=== PATIENT | female | born 1955 | race Hispanic/Latino ===

== ENCOUNTER 2017-03-29 17:23 | Emergency (ER) | payer MEDICAID ==
[2017-03-29] MEDS ORDERED: Sodium Chloride 0.9% 1,000 ML IV ONE (18:24)
[2017-03-29] MEDS ORDERED: Sodium Chloride 0.9% 1,000 ML ONE (18:35)
[2017-03-29 18:42] LABS: BASO % 0.2 % (0.0-2.0); CHLORIDE 96 mmol/L (98-107); HEMATOCRIT 40.8 % (34.0-47.0); LYMPH # 1.6 K/uL (1.0-4.3); LYMPH % 8.9 % (20.0-40.0); MEAN CELL VOLUME 85.9 fL (81.0-99.0); MEAN CORPUSCULAR HEMOGLOBIN 27.8 pg (27.0-31.0); MEAN CORPUSCULAR HGB CONC 32.4 g/dL (33.0-37.0); MEAN PLATELET VOLUME 10.1 fL (7.2-11.7); MONO # 0.7 K/uL (0.0-0.8); MONO % 4.2 % (0.0-10.0); PLATELET COUNT 281 K/uL (130-400); RED CELL DISTRIBUTION WIDTH 14.2 % (11.5-14.5); WHITE BLOOD COUNT 17.5 K/uL (4.8-10.8)
[2017-03-29 18:43] LABS: POTASSIUM 2.9 mmol/L (3.6-5.2); SODIUM 139 mmol/L (132-148)
[2017-03-29 18:46] LABS: ALB/GLOB RATIO 1.2 (1.0-2.1); ALKALINE PHOSPHATASE 72 U/L (38-126); ALT/SGPT 12 U/L (9-52); AST/SGOT 27 U/L (14-36); BILIRUBIN,TOTAL 1.3 mg/dL (0.2-1.3); BLOOD UREA NITROGEN 17 mg/dL (7-17); CALCIUM 10.1 mg/dl (8.6-10.4); CARBON DIOXIDE 25 mmol/L (22-30); GFR AFRICAN-AMERICAN > 60; GLUCOSE,RANDOM 87 mg/dL (65-105); TOTAL PROTEIN 8.9 g/dL (6.3-8.3)
[2017-03-29] MEDS ORDERED: Potassium Chloride 20 mEq ER Tab PO STA (19:06)
[2017-03-29] MEDS ORDERED: Potassium Chloride 20 mEq ER Tab PO ONE ×2 (19:32→19:46)
[2017-03-29] MEDS ORDERED: Lactated Ringer's 1,000 ML IVB STA (21:01)
[2017-03-29] MEDS ORDERED: Lactated Ringer's 1,000 ML ONE (21:13)
[2017-03-29 22:32] VITALS: BP 162/73; PULSE 81; RESP 18; TEMP 98.2; O2SAT 99
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
[2017-03-29 23:18] LABS: LARGE PLATELETS PRESENT; NEUTROPHIL 84 % (50-75); SMUDGE CELLS PRESENT; TOTAL CELLS COUNTED 100
== END 2017-03-29 23:50 | disposition home or self-care (01) ==
LOC: C.ER 17:23
DX: R11.2 Nausea with vomiting, unspecified (principal); R19.7 Diarrhea, unspecified
CPT/HCPCS: 80053; 83690; 85025; 96361; 96374; 96375; 99284; J2405; J7040; J7120

== ENCOUNTER 2017-05-06 03:14 | Emergency (ER) | payer MEDICAID ==
[2017-05-06 03:33] VITALS: RESP 20; TEMP 98
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
[2017-05-06] MEDS ORDERED: Tetanus/Diphtheria Toxoids 0.5 ml Syringe IM ONE (04:16)
[2017-05-06 04:40] VITALS: BP 120/76; PULSE 82; O2SAT 98
== END 2017-05-06 04:39 | disposition home or self-care (01) ==
LOC: C.ER 03:14
DX: S01.112A Laceration without foreign body of left eyelid and periocular area, initial encounter (principal); W01.0XXA Fall on same level from slipping, tripping and stumbling without subsequent striking against object, initial encounter; Y93.K1 Activity, walking an animal